=== PATIENT | male | born 1960 | race Caucasian/White ===

== ENCOUNTER → 2021-10-07 | Outpatient (CLI) | payer OTHER | LOC: LAB 10:54 | PROVIDERS: ATTEND Neurological Surgery | DX: Z01.812 Encounter for preprocedural laboratory examination (principal); Z20.822 Contact with and (suspected) exposure to COVID-19 | CPT/HCPCS: U0003; U0005 ==

== ENCOUNTER → 2022-02-16 | Outpatient (CLI) | payer OTHER ==
[~2022-02-16] MED LIST: CELE200C PO; DAPA10TA PO; FINA5TAB4 PO; METF10007 PO; MULT-121 PO; ONDA4TAB12 PO; OXYC5TAB2 PO
== END ==
LOC: LAB 10:40
PROVIDERS: ATTEND Orthopaedic Surgery
DX: Z01.812 Encounter for preprocedural laboratory examination (principal); Z20.822 Contact with and (suspected) exposure to COVID-19
CPT/HCPCS: U0003

== ENCOUNTER 2022-02-18 06:06 | Day surgery (SDC) | payer OTHER ==
[~2022-02-18] VITALS: Ht 177.8 cm; Wt 107.2 kg
[~2022-02-18 06:06] MED LIST changes: +HYDROmorphone 2 MG/ML INJ. IVP PRN; +IV RINGERS,LACTATED 1000ML 1,000 ML IV SCH; +MORPHINE SULFATE 2 MG/ML INJ. IVP PRN; -ONDA4TAB12 PO; -OXYC5TAB2 PO; +PROCHLORPERAZINE 10 MG/2 ML VIAL. IVP PRN; +fentaNYL PF VIAL 100 MCG/2 ML VIAL IVP PRN
[2022-02-18 06:33] VITALS: BP 147/92
[2022-02-18] MEDS ORDERED: DEXAMETHASONE SOD PHOS 4 MG/ML VIAL ONE ×2 (06:49→07:16)
[2022-02-18] MEDS ORDERED: ONDANSETRON PF 4 MG/2 ML VIAL. ONE (06:49)
[2022-02-18] MEDS ORDERED: PROPOFOL 10 MG/ML (20ML) VIAL. IV ONE (06:49)
[2022-02-18] MEDS ORDERED: LIDOCAINE 1% PF 5 ML VIAL. ONE (06:49)
[2022-02-18] MEDS ORDERED: ROCURONIUM 100 MG/10 ML VIAL. ONE (06:53)
[2022-02-18] MEDS ORDERED: GLYCOPYRROLATE 1 MG/5 ML VIAL. ONE (07:01)
[2022-02-18] MEDS ORDERED: EPINEPHrine VIAL 30 MG/30 ML VIAL ONE (07:11)
[2022-02-18] MEDS ORDERED: LIDOCAINE 1% PF 2 ML VIAL. ONE (07:16)
[2022-02-18] MEDS ORDERED: MIDAZOLAM HCL/PF 2 MG/2 ML VIAL. ONE (07:16)
[2022-02-18] MEDS ORDERED: ROPIVacaine 0.5% PF 20 ML VIAL. ONE (07:17)
[2022-02-18] MEDS ORDERED: SUCCINYLCHOLINE 200 MG/10 ML VIAL. ONE (07:25)
--- NOTE | 2022-02-18 07:29 | DISCH ---
DISCHARGE INSTRUCTIONS Condition on Discharge Condition on Discharge: Stable Activity After Discharge Activity Instructions for Disc: Activity as tolerated, Avoid exertion Bathing Instructions: Shower-keep dressing dry Lifting Instructions after Dis: No heavy lifting, No pulling or pushing Exercise Instruction after Dis: Walk 10 min, 3 x per day Driving Instructions after Dis: Do not drive Weight Bearing Status after Di: Non weight bearing Diet after Discharge Diet after Discharge: Regular Wound Incision Care Wound/Incision Care: Ice to area for comfort, Change dressing (may change dressing on POD #2. Keep incisions covered w/ water proof bandaids when performing daily hygiene. ) Contacting the DR. after DC Call your doctor for: If your condition worsens (Severe pain uncontrolled w/ pain meds, uncontrolled N/V, foul smelling drainage or discharge from incisions. ) Follow-Up Follow up with: Follow up with Orthopedic clinic [phone] Treatment/Equipment after DC Adaptive Equipment Issued: None GYPSY GABRIEL Feb 18, 2022 07:29
[2022-02-18] MEDS ORDERED: ONDA4TAB12 PO (07:33)
[2022-02-18] MEDS ORDERED: OXYC5TAB2 PO (07:33)
[2022-02-18] MEDS ORDERED: ePHEDrine PF IN SALINE 50 MG/10 ML SYRINGE. IV ONE (08:18)
[2022-02-18] MEDS ORDERED: PHENYLEPHRINE in 0.9% NACL PF 1 MG/10 ML SYRINGE. IV ONE (08:18)
--- NOTE | 2022-02-18 08:49 | PDOC4 ---
OPERATIVE NOTE Date: Date: Feb 18, 2022 Pre-Op Diagnosis: 1. 61 y/o M R shoulder impingement syndrome 2. R shoulder rotator cuff tear Post-Op Diagnosis: Same Procedure Performed: 1. Arthroscopic SAD 2. Arthroscopic acromioplasty 3. Mini open rotator cuff repair Surgeon: Kristin Anesthesia Type: General Blood Loss: 50cc Specimans Obtained: None Complications: Patient tolerated the procedure well without any complications acutely. Operative Note: See dictation GYPSY GABRIEL Feb 18, 2022 08:49
[2022-02-18] MEDS ORDERED: oxyCODONE/APAP 5/325 1 TAB TABLET PO ONE (09:15)
--- NOTE | 2022-02-18 09:20 | OP ---
DATE OF SURGERY: 02/18/2022 PREOPERATIVE DIAGNOSES: Impingement, acromioclavicular arthrosis, rotator cuff tear, right shoulder. POSTOPERATIVE DIAGNOSES: Impingement, acromioclavicular arthrosis, rotator cuff tear, right shoulder. PROCEDURE: Right shoulder arthroscopy with subacromial decompression, distal clavicle resection, mini open rotator cuff repair. SURGEON: Olegario Foster Jr, DO [employer] HELPER: VARGAS Miranda ANESTHESIA: General. COMPLICATIONS: None. ESTIMATED BLOOD LOSS: 30 mL DESCRIPTION OF PROCEDURE: The patient was taken to the operative suite, given a general anesthetic. Right shoulder was prepped and draped in a sterile fashion. Standard posterior portal was established. The glenohumeral joint was visualized. There was noted to be a fissure along the area of the proximal aspect of the humerus; however, no bony exposure was noted on this or the humeral side of the joint. There was nothing in the inferior pouch. Upon visualization and most importantly, there was no labral tear. Biceps tendon was noted to be completely intact and stable without any issues. Probing of the biceps as well as probing of the labral tissue around the periphery noted this to be completely intact and stable. No detachment whatsoever. The rotator cuff was noted from beneath to be a near full thickness rotator cuff tear, one area looked to be full thickness. Therefore, scope was then taken into the subacromial region. There were very large spurs, especially along the area of the AC joint with severe degenerative changes of the AC joint and downsloping anteriorly. Therefore, through a laterally established portal, a subacromial decompression was performed and then the anterior portal, which was used for the intraarticular portion of the scope, was then placed into the AC joint region and the large osteophytes from the acromion as well as the clavicle were resected along the undersurface and then approximately 1.8 cm of the distal clavicle was resected in its entirety. This decompressed the joint significantly, but after bursectomy there was noted to be a full-thickness tear; therefore, an incision was made through skin and subcutaneous tissues laterally, incorporating the lateral portal. This was taken down to split the deltoid fascia and after this was retracted anteriorly and posteriorly, debridement was undertaken of the rotator cuff back to very good stable tissue. There was also noted to be a longitudinal tear secondary to the osteophytes damage along the tendon approximately 2.5 cm from the tear from the greater tuberosity. This was debrided in both areas and then using a suture, #2 Ethibond, this was closed as far as a longitudinal split. This had good fixation and following this, 2 SwiveLocks followed by 2 PushLocks were used in a standard fashion to establish Medial and lateral row fixation. This had excellent purchase and reduced the rotator cuff back into original bed, which had been cleared of all osteophytes along the humerus proximally and this had excellent fixation and was very stable. The wound was then thoroughly irrigated. The deltoid split was reapproximated in an interrupted fashion using 2-0 Vicryl, superficial tissues and skin was reapproximated. Sterile dressing was applied. The patient was then taken from the operative bed to the postoperative bed, taken to the PACU in stable condition. ALL DR: Flor TID: [id number]
[2022-02-18 09:27] VITALS: BP 126/96
--- NOTE | 2022-02-18 10:27 | HP ---
DATE OF SERVICE: 02/18/2022 ADMIT DATE: 02/18/2022 BRIEF HISTORY: The patient is a 61-year-old right hand dominant male who was referred to us for ongoing pain, which shows moderate at times, but it is occasionally severe as far as his right shoulder is concerned. He has some problems with activities of daily living, also has significant history as far as cervical radiculopathy, but presently, his right shoulder pain is unremitting. He has noticed some minor weakness in there, has received injections with good relief in the past; however, those are not helping significantly at this point. REVIEW OF SYSTEMS: Unremarkable other than his current musculoskeletal complaints. PAST MEDICAL HISTORY: Degenerative joint disease of cervical spine with associated fracture back in the 90s, hypertension, hyperlipidemia, obesity, diabetes. PAST SURGICAL HISTORY: C3-C4 fusion and appendectomy. FAMILY HISTORY: Unremarkable. SOCIAL HISTORY: He is a former smoker; however, has not used tobacco in the last 10 years. No alcohol use. MEDICATIONS: Include folic acid, Farxiga, metformin, cyclobenzaprine, losartan, triamcinolone cream. MEDICATION ALLERGIES: GEMFIBROZIL, SIMVASTATIN, AND IODINATED CONTRAST. PHYSICAL EXAMINATION: VITAL SIGNS: Today, he is 70 inches tall, 235 pounds. GENERAL: He is alert and oriented x 3. HEART: He does not have any issues as far as his heart. It is with regular rate and rhythm. LUNGS: Clear to auscultation in all campos. ABDOMEN: Soft and nontender. EXTREMITIES: The right upper extremity reveals there to be pain up to 160 degrees of forward elevation. Abduction is painful at 90, although possible to 95-100. External and internal rotation are limited by 10 degrees in each field. There is no atrophy of musculature. There is pain with palpation at the AC joint and pain across over the AC joint. Mildly positive Speed test is also noted at this point. No weakness is noted of significance of the rotator cuff. IMPRESSION: Chronic rotator cuff tendinitis, possible rotator cuff tear - right shoulder, acromioclavicular arthrosis and impingement. PLAN: At this time, we have talked with him about the diagnosis and the treatment plan. He understands about the right shoulder arthroscopy, subacromial decompression, distal clavicle resection, possible open rotator cuff repair versus debridement, possible biceps tenodesis or tenolysis. He understands risks, complications as well as benefits and expectations of surgery, postoperative protocol and followup. We will get him a block through anesthesia and then proceed. THIERNO/BENTLEY/MAGALIE DR: Flor TID: [id number]
== END 2022-02-18 09:58 | disposition home or self-care (01) ==
LOC: SURG 06:06
PROVIDERS: ATTEND Orthopaedic Surgery
DX: M19.011 Primary osteoarthritis, right shoulder (principal); M12.811 Other specific arthropathies, not elsewhere classified, right shoulder; M75.101 Unspecified rotator cuff tear or rupture of right shoulder, not specified as traumatic; I10 Essential (primary) hypertension; E66.9 Obesity, unspecified; E11.9 Type 2 diabetes mellitus without complications; E78.00 Pure hypercholesterolemia, unspecified; Z79.899 Other long term (current) drug therapy; Z98.890 Other specified postprocedural states; Z91.041 Radiographic dye allergy status; Z88.8 Allergy status to other drugs, medicaments and biological substances
CPT/HCPCS: 23410; 29822; 29824; 82962; A4209; A4565; A4928; A4930; C1713; J0171; J0330; J0690; J1100; J2250; J2370; J2405; J2704; J2795; J3490; A4452